=== PATIENT | female | born 2000 | race African-American/Black ===

== ENCOUNTER 2019-10-01 09:40 | Emergency (ER) | payer SELFPAY ==
[2019-10-01 10:16] LABS: Urine Blood NEGATIVE (NEG); Urine Glucose NEGATIVE (NEG); Urine Protein NEGATIVE (NEG); Urine pH 7.5 (5.0-7.0)
[2019-10-01 10:19] LABS: Absolute Lymphocytes (CBC) 2.6 K/uL (0.7-4.9); Basophils % 1.1 % (0-1.3); Hematocrit 38.9 % (36.0-45.0); Lymphocytes % 39.8 % (15.3-44.8); MPV 8.6 fL (7.6-11.3); RBC Red Blood Cell Count 4.42 M/uL (3.86-4.86)
[2019-10-01 10:40] LABS: ALT/SGPT 13 U/L (12-78); AST/SGOT 10 U/L (15-37); Albumin 3.4 g/dL (3.4-5.0); Alkaline Phosphatase 29 U/L (45-117); BUN Blood Urea Nitrogen 9 mg/dL (7-18); Bicarbonate 29 mmol/L (21-32); Bilirubin Direct < 0.1 mg/dL (0-0.2); Bilirubin Total 0.4 mg/dL (0.2-1.0); Glucose Level 91 mg/dL (74-106); Lipase 118 U/L (73-393); Potassium 3.8 mmol/L (3.5-5.1); Protein, Total 6.9 g/dL (6.4-8.2); Sodium Level 140 mmol/L (136-145)
--- NOTE | 2019-10-01 11:17 | RAD REPORT ---
EXAM DESCRIPTION: CTAbdomen Pelvis W Contrast - 10/01/2019 11:09 am CLINICAL HISTORY: Abdominal pain. ABD PAIN COMPARISON: Transvaginal Study Probe dated 10/01/2019 TECHNIQUE: Biphasic CT imaging of the abdomen and pelvis was performed with 100 ml non-ionic IV cont rast. All CT scans are performed using dose optimization technique as appropriate and may include automated exposure control or mA/KV adjustment according to patient size. FINDINGS: The lung bases are clear. The liver, spleen, pancreas, adrenal glands and kidneys are within normal limits. No bowel obstruction, free air, free fluid or abscess. The appendix is normal. No evidence of signi ficant lymphadenopathy. No suspicious bony findings. IMPRESSION: No acute intra-abdominal or pelvic finding.
--- NOTE | 2019-10-01 11:32 | RAD REPORT ---
EXAM DESCRIPTION: US - Transvaginal Study Probe - 10/01/2019 10:55 am CLINICAL HISTORY: ABD PAIN Pelvic pain. COMPARISON: No comparisons FINDINGS: The uterus is normal in size, shape and echotexture. The uterus measures 5.5 x 2.6 cm. The endometrial stripe measures 2 mm, normal. Both ovaries are normal in size, shape and echotexture. The right ovary measures 3.4 x 2.0 cm. The left ovary measures 1.6 x 1.2 cm. No ovarian or parovarian lesions. No adnexal masses. Normal Doppler blood flow was demonstrated to both ovaries. No significant pelvic ascites. IMPRESSION: Unremarkable study.
--- NOTE | 2019-10-01 12:53 | ER ---
Nurse's Notes [facility] Name: Clare Barreto Age: 19 yrs Sex: Female : 2000 Arrival Date: 10/01/2019 Time: 09:43 Bed 4 Private MD: Diagnosis: Abdominal and pelvic pain Presentation: 10/01 09:46 Presenting complaint: Patient states: LLQ pain and lower back pain. Pt states "the pain aa5 started a while back but it would go away but it became constant about a few days ago". Pt also c/o nausea and vomiting. Denies diarrhea, denies blood in stool. Transition of care: patient was not received from another setting of care. Onset of symptoms was 2018. Risk Assessment: Do you want to hurt yourself or someone else? Patient reports no desire to harm self or others. Initial Sepsis Screen: Does the patient meet any 2 criteria? No. Patient's initial sepsis screen is negative. Does the patient have a suspected source of infection? No. Patient's initial sepsis screen is negative. Care prior to arrival: None. 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 - Social history:: Smoking status: Patient uses tobacco products, 2 cigarettes a day . - Ebola Screening: : No symptoms or risks identified at this time. Screenin:12 Abuse screen: Denies threats or abuse. Denies injuries from another. Nutritional hb screening: No deficits noted. Tuberculosis screening: No symptoms or risk factors identified. Fall Risk None identified. Assessment: 10:02 General: Appears in no apparent distress. Behavior is calm, cooperative. Pain: Pain hb currently is 8 out of 10 on a pain scale. Neuro: Level of Consciousness is awake, alert, obeys commands, Oriented to person, place, time, situation. Cardiovascular: Capillary refill < 3 seconds Patient's skin is warm and dry. Respiratory: Airway is patent Respiratory effort is even, unlabored, Respiratory pattern is regular, symmetrical. GI: Abdomen is non-distended, Bowel sounds present X 4 quads. Abd is soft and non tender X 4 quads. Reports lower abdominal pain, nausea, vomiting. : No signs and/or symptoms were reported regarding the genitourinary system. EENT: No signs and/or symptoms were reported regarding the EENT system. Derm: Skin is intact, is healthy with good turgor. Musculoskeletal: No signs and/or symptoms reported regarding the musculoskeletal system. 11:17 Reassessment: Patient appears in no apparent distress at this time. Patient and/or hb family updated on plan of care and expected duration. Pain level reassessed. Patient is alert, oriented x 3, equal unlabored respirations, skin warm/dry/pink. 12:11 Reassessment: Patient appears in no apparent distress at this time. Patient and/or mg2 family updated on plan of care and expected duration. Pain level reassessed. Patient is alert, oriented x 3, equal unlabored respirations, skin warm/dry/pink. 13:09 Reassessment: Patient denies pain at this time. mg2 Vital Signs: 09:49 BP 141 / 77; Pulse 77; Resp 16 S; Temp 98.2(O); Pulse Ox 100% on R/A; Weight 49.9 kg aa5 (R); Height 5 ft. 4 in. (162.56 cm) (R); Pain 10/10; 11:22 BP 126 / 84; Pulse 60; Resp 18; Pulse Ox 100% on R/A; Pain 6/10; em1 12:11 BP 127 / 78; Pulse 64; Resp 18; Pulse Ox 100% on R/A; mg2 13:09 BP 122 / 78; Pulse 65; Resp 18; Temp 98; Pulse Ox 100% on R/A; mg2 09:49 Body Mass Index 18.88 (49.90 kg, 162.56 cm) aa5 ED Course: 09:43 Patient arrived in ED. ag5 09:48 Triage completed. aa5 09:48 Arm band placed on. aa5 09:50 Anton Mendez MD is Attending Physician. kdr 09:57 Anthony Rodriguez, TEMITOPE is Primary Nurse. mg2 10:08 Inserted saline lock: 22 gauge in right antecubital area, using aseptic technique. hb Blood collected. 10:09 Patient has correct armband on for positive identification. Placed in gown. Bed in low hb position. Call light in reach. Side rails up X 1. 10:48 US Transvaginal Study (Probe) In Process Unspecified. EDMS 11:18 CT Abd/Pelvis - IV Contrast Only In Process Unspecified. EDMS 13:10 No provider procedures requiring assistance completed. IV discontinued, intact, mg2 bleeding controlled, No redness/swelling at site. Pressure dressing applied. Administered Medications: No medications were administered Outcome: 12:52 Discharge ordered by . kdr 13:10 Discharged to home ambulatory. mg2 13:10 Condition: stable 13:10 Discharge instructions given to patient, Instructed on discharge instructions, follow up and referral plans. medication usage, Demonstrated understanding of instructions, follow-up care, medications, Prescriptions given X 4. 13:10 Patient left the ED. mg2 Signatures: Dispatcher [employer] EDMS Anton Mendez MD MD kdr Martinez, Eric em1 Myla Anguiano, RN RN aa5 Daphne Kim RN TEMITOPE Anthony Rodriguez RN RN mg2 Janeth Charles ag5
--- NOTE | 2019-10-01 12:54 | EDPHYS ---
Physician Documentation [facility] Name: Clare Barreto Age: 19 yrs Sex: Female : 2000 Arrival Date: 10/01/2019 Time: 09:43 Bed 4 Private MD: ED Physician Anton Mendez HPI: 10/01 11:06 This 19 yrs old Black Female presents to ER via Ambulatory with complaints of Abdominal kdr Pain, Back Pain. 11:06 The patient presents with pain that is acute, with no known mechanism of injury. kdr 11:06 The patient presents with abdominal pain in the left lower quadrant. Onset: The kdr symptoms/episode began/occurred gradually, 4 day(s) ago. The symptoms radiate to back. Associated signs and symptoms: Pertinent positives: nausea and vomiting, Pertinent negatives: chest pain, diarrhea, dysuria, palpitations, shortness of breath, vaginal discharge, vomiting blood. 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 - Social history:: Smoking status: Patient uses tobacco products, 2 cigarettes a day . - Ebola Screening: : No symptoms or risks identified at this time. ROS: 11:07 Constitutional: Negative for fever, chills, and weight loss, Eyes: Negative for injury, kdr pain, redness, and discharge, ENT: Negative for injury, pain, and discharge, Neck: Negative for injury, pain, and swelling, Cardiovascular: Negative for chest pain, palpitations, and edema, Respiratory: Negative for shortness of breath, cough, wheezing, and pleuritic chest pain, Back: Negative for injury and pain, : Negative for injury, bleeding, discharge, and swelling, MS/Extremity: Negative for injury and deformity, Skin: Negative for injury, rash, and discoloration, Neuro: Negative for headache, weakness, numbness, tingling, and seizure activity. Psych: Negative for depression, anxiety, suicide ideation, homicidal ideation, and hallucinations, Allergy/Immunology: Negative for hives, rash, and allergies, Endocrine: Negative for neck swelling, polydipsia, polyuria, polyphagia, and marked weight changes, Hematologic/Lymphatic: Negative for swollen nodes, abnormal bleeding, and unusual bruising. 11:07 Abdomen/GI: Positive for abdominal pain, nausea and vomiting, nausea, vomiting, Negative for black/tarry stool, rectal pain, rectal bleeding, bowel incontinence. Exam: 11:07 Constitutional: This is a well developed, well nourished patient who is awake, alert, kdr and in no acute distress. Head/Face: Normocephalic, atraumatic. Eyes: Pupils equal round and reactive to light, extra-ocular motions intact. Lids and lashes normal. Conjunctiva and sclera are non-icteric and not injected. Cornea within normal limits. Periorbital areas with no swelling, redness, or edema. Neck: Trachea midline, no thyromegaly or masses palpated, and no cervical lymphadenopathy. Supple, full range of motion without nuchal rigidity, or vertebral point tenderness. No Meningismus. Chest/axilla: Normal chest wall appearance and motion. Nontender with no deformity. No lesions are appreciated. Cardiovascular: Regular rate and rhythm with a normal S1 and S2. No gallops, murmurs, or rubs. Normal PMI, no JVD. No pulse deficits. Respiratory: Lungs have equal breath sounds bilaterally, clear to auscultation and percussion. No rales, rhonchi or wheezes noted. No increased work of breathing, no retractions or nasal flaring. Skin: Warm, dry with normal turgor. Normal color with no rashes, no lesions, and no evidence of cellulitis. MS/ Extremity: Pulses equal, no cyanosis. Neurovascular intact. Full, normal range of motion. Neuro: Awake and alert, GCS 15, oriented to person, place, time, and situation. Cranial nerves II-XII grossly intact. Motor strength 5/5 in all extremities. Sensory grossly intact. Cerebellar exam normal. Normal gait. Psych: Awake, alert, with orientation to person, place and time. Behavior, mood, and affect are within normal limits. 11:07 Abdomen/GI: Inspection: abdomen appears normal, Bowel sounds: active, diminished, in all quadrants, Palpation: soft, mild abdominal tenderness, in the left upper quadrant and left lower quadrant. Vital Signs: 09:49 BP 141 / 77; Pulse 77; Resp 16 S; Temp 98.2(O); Pulse Ox 100% on R/A; Weight 49.9 kg aa5 (R); Height 5 ft. 4 in. (162.56 cm) (R); Pain 10/10; 11:22 BP 126 / 84; Pulse 60; Resp 18; Pulse Ox 100% on R/A; Pain 6/10; em1 12:11 BP 127 / 78; Pulse 64; Resp 18; Pulse Ox 100% on R/A; mg2 13:09 BP 122 / 78; Pulse 65; Resp 18; Temp 98; Pulse Ox 100% on R/A; mg2 09:49 Body Mass Index 18.88 (49.90 kg, 162.56 cm) aa5 MDM: 12:52 Patient medically screened. kdr 12:53 Data reviewed: vital signs, nurses notes, lab test result(s), radiologic studies. kdr Counseling: I had a detailed discussion with the patient and/or guardian regarding: the historical points, exam findings, and any diagnostic results supporting the discharge/admit diagnosis, lab results, radiology results, the need for outpatient follow up. 10/01 10:00 Order name: Basic Metabolic Panel; Complete Time: 11:05 mg2 10/01 10:00 Order name: CBC with Diff; Complete Time: 10: mg2 10/01 10:00 Order name: Creatinine for Radiology; Complete Time: 11: mg2 10/01 10:00 Order name: Hepatic Function; Complete Time: 11: mg2 10/01 10:00 Order name: Lipase; Complete Time: 11: mg2 10/01 10:03 Order name: Urine Dipstick--Ancillary (enter results); Complete Time: 10: bd 10/01 10:00 Order name: IV Saline Lock; Complete Time: 10: mg2 10/01 10:00 Order name: Labs collected and sent; Complete Time: 10: mg2 10/01 10:03 Order name: Urine --Ancillary (enter results); Complete Time: 10:22 bd 10/01 10:22 Order name: CT Abd/Pelvis - IV Contrast Only; Complete Time: 11:22 kdr 10/01 10:22 Order name: US Transvaginal Study (Probe); Complete Time: 12:51 kdr Administered Medications: No medications were administered Disposition: 10/01/19 12:52 Discharged to Home. Impression: Abdominal and pelvic pain. - Condition is Stable. - Discharge Instructions: Abdominal Pain, Adult, [id number]. - Prescriptions for Bentyl 20 mg Oral Tablet - take 1 tablet by ORAL route every 6 hours As needed; 20 tablet. Pepcid 20 mg Oral Tablet - take 1 tablet by ORAL route every 12 hours for 5 days; 10 tablet. Zofran 4 mg Oral Tablet - take 1 tablet by ORAL route every 12 hours As needed; 12 tablet. Tramadol 50 mg Oral Tablet - take 1 tablet by ORAL route every 8 hours as needed; 12 tablet. - Medication Reconciliation Form, Thank You Letter, Prescription Opioid Use form. - Follow up: Private Physician; When: 2 - 3 days; Reason: If symptoms return, Further diagnostic work-up, Recheck today's complaints, Continuance of care, Re-evaluation by your physician. - Problem is an ongoing problem. - Symptoms have improved. Signatures: Dispatcher [employer] EDMS Anton Mendez MD MD kdr Myla Anguiano RN RN aa5 Anthony Rodriguez RN RN mg2 Corrections: (The following items were deleted from the chart) 13:10 12:52 10/01/2019 12:52 Discharged to Home. Impression: Abdominal and pelvic pain. mg2 Condition is Stable. Forms are Medication Reconciliation Form, Thank You Letter, Antibiotic Education, Prescription Opioid Use. Follow up: Private Physician; When: 2 - 3 days; Reason: If symptoms return, Further diagnostic work-up, Recheck today's complaints, Continuance of care, Re-evaluation by your physician. Problem is an ongoing problem. Symptoms have improved. kdr
[2019-10-01 13:29] VITALS: O2SAT 100
[2019-10-01 13:33] VITALS: BP 122/78; TEMP 98
== END 2019-10-01 13:10 | disposition home or self-care (01) ==
LOC: ER 09:40
DX: R10.9 Unspecified abdominal pain (principal); R10.2 Pelvic and perineal pain; F17.210 Nicotine dependence, cigarettes, uncomplicated
CPT/HCPCS: 36415; 74177; 76830; 80048; 80076; 81003; 81025; 83690; 85025; 99284; Q9967